=== PATIENT | male | born 1995 | race Caucasian/White ===

== ENCOUNTER 2020-07-29 03:03 | Emergency (ER) | payer SELFPAY ==
[2020-07-29] MEDS ORDERED: CLONAZEPAM 1 MG TABLET PO ONE (03:22)
[2020-07-29] MEDS ORDERED: ONDANSETRON 4 MG TAB.RAPDIS PO ONE (04:53)
[2020-07-29] MEDS ORDERED: NORMAL SALINE 1000 ML 1,000 ML IV ONE (05:05)
--- NOTE | 2020-07-29 05:05 | ER Document Report ---
ED Substance Abuse / Acc. OD - General Chief Complaint: Alcohol Withdrawl Stated Complaint: NAUSEOUS, DEHYDRATED Time Seen by Provider: 07/29/20 04:42 Mode of Arrival: Ambulatory Information source: Patient Notes: 24-year-old male patient presents the emergency department with concern for poss ible alcohol withdrawal. Patient reports he usually drinks one half of a gallon of liquor daily. He states that he does this for social reasons only and that sometimes he does not drink. He states he decided to not drink for 2 days and he started vomiting. He denies any fever, chills, diarrhea or any other symptoms. He has not had any shakes or seizures. - Related Data Allergies/Adverse Reactions: No Known Allergies Allergy (Verified 07/29/20 03:13) Past Medical History - General Information source: Patient - Social History Smoking Status: Current Every Day Smoker Frequency of alcohol use: Heavy Drug Abuse: None Family History: Reviewed & Not Pertinent Patient has homicidal ideation: No Psychiatric Medical History: Reports: Hx Attention Deficit Hyperactivity Disorder Surgical Hx: Negative - Immunizations Immunizations up to date: Yes Review of Systems - Review of Systems Gastrointestinal: Nausea, Vomiting. denies: Abdominal pain -: Yes All other systems reviewed and negative Physical Exam - Vital signs Vitals: Temp Pulse Resp BP Pulse Ox 98.1 F 124 H 12 152/107 H 95 07/29/20 03:11 07/29/20 03:11 07/29/20 03:11 07/29/20 03:11 07/29/20 03:11 - Notes Notes: PHYSICAL EXAMINATION: GENERAL: Well-appearing, well-nourished and in no acute distress. HEAD: Atraumatic, normocephalic. EYES: Pupils equal round and reactive to light, extraocular movements intact, sclera anicteric, conjunctiva are normal. ENT: Nares patent, oropharynx clear without exudates. Moist mucous membranes. NECK: Normal range of motion, supple without lymphadenopathy LUNGS: Breath sounds clear to auscultation bilaterally and equal. No wheezes rales or rhonchi. HEART: Regular rate and rhythm without murmurs ABDOMEN: Soft, nontender, nondistended abdomen. No guarding, no rebound. No masses appreciated. Musculoskeletal: Normal range of motion, no pitting or edema. No cyanosis. NEUROLOGICAL: Cranial nerves grossly intact. Normal speech, normal gait. Normal sensory, motor exams PSYCH: Normal mood, normal affect. SKIN: Warm, Dry, normal turgor, no rashes or lesions noted. Course - Re-evaluation Re-evalutation: Patient appears well, nontoxic, no evidence of acute alcohol withdrawal. He did have an elevated white blood count however this is likely secondary to repeated vomiting. He was given IV fluids and IV antiemetics in the emergency department and has not had any additional episodes of vomiting. Patient reports he feels much improved and is ready to be discharged home. We did discuss potential detox facilities, patient states he is not interested in these at this time. - Vital Signs Vital signs: Temp Pulse Resp BP Pulse Ox 98.1 F 124 H 12 113/97 H 95 07/29/20 03:11 07/29/20 03:11 07/29/20 03:11 07/29/20 07:05 07/29/20 03:11 - Laboratory Results Result Diagrams: 07/29/20 05:17 07/29/20 05:17 Laboratory Results Interpreted: 07/29/20 07/29/20 05:17 05:17 WBC 15.0 H Lymph % (Auto) 6.3 L Absolute Neuts (auto) 13.0 H Seg Neutrophils % 86.9 H Sodium 136.4 L Chloride 97 L Calcium 10.3 H Critical Laboratory Results Reviewed: No Critical Results - Radiology Results Critical Radiology Results Reviewed: No Critical Results Discharge - Discharge Clinical Impression: ETOH abuse Nausea and vomiting Qualifiers: Vomiting type: unspecified Vomiting Intractability: unspecified Qualified Code(s): R11.2 - Nausea with vomiting, unspecified Condition: Stable Disposition: HOME, SELF-CARE Additional Instructions: Please take medications as prescribed for nausea. Consider following up with [facility] for detox. If your symptoms persist please consider having Covid testing done. Return if worsening. Prescriptions: Ondansetron [Zofran Odt 4 mg Tablet] 1 - 2 tab PO Q4H PRN #15 tab.rapdis PRN Reason: For Nausea/Vomiting Ondansetron [Zofran Odt 4 mg Tablet] 1 - 2 tab PO Q4H PRN #15 tab.rapdis PRN Reason: For Nausea/Vomiting
[2020-07-29 05:26] LABS: ABSOLUTE LYMPHOCYTES (AUTO) 0.9 10^3/uL (0.5-4.7); BASOPHILS % (AUTO) 0.1 % (0-2); HEMATOCRIT 46.7 % (37.9-51.0); HEMOGLOBIN 16.2 g/dL (13.5-17.0); LYMPHOCYTES % (AUTO) 6.3 % (13-45); MEAN CORPUSCULAR HEMOGLOBIN 32.4 pg (27.0-33.4); MEAN CORPUSCULAR HGB CONC 34.7 g/dL (32.0-36.0); MEAN CORPUSCULAR VOLUME 93 fl (80-97); MONOCYTES % (AUTO) 6.7 % (3-13); PLATELET COUNT 222 10^3/uL (150-450); RED CELL DISTRIBUTION WIDTH 12.9 % (11.5-14.0); SEGMENTED NEUTROPHILS % (AUTO) 86.9 % (42-78); TOTAL CELLS COUNTED % (AUTO) 100 %
[2020-07-29 05:41] LABS: ALKALINE PHOSPHATASE 95 U/L (38-126); ANION GAP 10 (5-19); ASPARTATE AMINO TRANSFERASE 55 U/L (17-59); BILIRUBIN,DIRECT 0.1 mg/dL (0.0-0.4); BILIRUBIN,TOTAL 0.8 mg/dL (0.2-1.3); BLOOD UREA NITROGEN 13 mg/dL (7-20); CALCIUM 10.3 mg/dL (8.4-10.2); CARBON DIOXIDE 29 mmol/L (22-30); CHLORIDE 97 mmol/L (98-107); GLUCOSE 98 mg/dL (75-110); POTASSIUM 4.3 mmol/L (3.6-5.0); TOTAL PROTEIN 7.7 g/dL (6.3-8.2)
[2020-07-29 07:08] VITALS: BP 113/97
== END 2020-07-29 07:09 | disposition home or self-care (01) ==
LOC: ER 03:03
DX: F10.10 Alcohol abuse, uncomplicated (principal); R11.2 Nausea with vomiting, unspecified; F17.200 Nicotine dependence, unspecified, uncomplicated
CPT/HCPCS: 99284; 96360; 36415; 85025; 80053; S0119; J7030

== ENCOUNTER 2020-08-26 19:11 | Emergency (ER) | payer SELFPAY ==
--- NOTE | 2020-08-26 20:55 | ER Document Report ---
ED General - General Chief Complaint: Nasal Congestion Stated Complaint: CHILLS,VOMITING,NAUSEA - HPI Notes: Chief Complaint: Shortness of breath Historian: History obtained from patient HPI: This is a 24-year-old male presents to the ER complaining of shortness of breath, cough, congestion for the past few days. Patient says father has similar symptoms. Patient had a negative rapid Covid test yesterday. Reports cough is productive episodically. Patient has some diffuse anterior chest pain but says he has had this in the past and is not concerned. Patient is talking in full sentences and rapidly without any signs of respiratory distress or shortness of breath. He has a history of alcohol abuse and was recently admitted for severe alcohol withdrawal symptoms. Patient is adamant that he is not here related to alcohol abuse or withdrawal. He has been using an inhaler from his grandmother for his shortness of breath. No history of PE/DVT. Patient denies fevers, abdominal pain, nausea vomiting, rash, headache. Patient is requesting a 3-day Covid test instead of the prior rapid he had yesterday. ROS: Constitutional: Temp 99.9 ED HEENT: Congestion. CV: Chest pain Resp: Short of breath, productive cough. GI: no abdominal pain, or n/v/d. : no dysuria, hematuria, or incont. MSK: no back pain, no joint swelling/redness. Skin: no rashes or itching. Neuro: no seizures, weakness, numbness, or confusion. Hematological: no ecchymosis or easy bleeding. Endocrine: no polyuria/polydipsia, no heat/cold intolerance. Psych: no SI/HI, AH/VH or memory loss. PMHx: Reviewed and agree as charted by RN. PSHx: Reviewed and agree as charted by RN. SOCHx: Reviewed and agree as charted by RN. FHX: No significant familial comorbid conditions directly related to patient complaint Current Medications: Reviewed and agree with the patient medications as charted by the RN. Allergies: Reviewed and agree with the listed allergies as charted by the RN Physical Exam: Vitals: Reviewed in chart as documented by RN. General: Alert and in NAD. No respiratory distress Head: Normocephalic; atraumatic Eyes: PERRLA, Conjunctivae clear sclerae non-icteric bilat ENT: no soft palate swelling or uvular deviation Neck: trachea midline, no unilateral swelling/tenderness/lymphadenopathy CV: RRR, no M/R/G; symmetric distal pulses Resp: respirations even and unlabored, CTA bilat. GI: abd soft and nondistended. NTTP. normal BS. no masses/HSM. no CVAT bilat MSK: FROM of all extremities. No midline CTL spine tenderness/deformity Skin: warm, moist, good turgor. no rash/lesions Neuro: Alert and oriented X 4. following CN 2-12 intact. no unilateral weakness/numbness Psych: No SI/HI or AH/VH. Medical Decision-Making: Medical Decision-making/Differential Diagnosis: Consider various etiologies including but not limited to Covid, CAP, bronchitis, URI, sinusitis, PE/unlikely, ACSunlikely, viral syndrome strep pharyngitis, viral pharyngitis, other pharyngitis, candis-tonsillar abscess (unlikely), retropharyngeal abscess (unlikely), Acute Suppurative Otitis media, otalgia, upper respiratory infection, viral syndrome, bronchitis, sinusitis, ect Plan-we will get chest x-ray and 3-day Covid test. Patient's most likely a viral syndrome though Covid is possible. He is in no respiratory distress, O2 sats are 99% on room air and he is talking in full sentences without any distress. He does take Tylenol for fevers continue to self quarantine until Covid results return. Follow-up primary care for recheck. Extensive discussion regarding return factors were discussed. This course of action was discussed with the patient and/or family. They were amenable to this, verbalized understanding, and were without further questions. - Related Data Allergies/Adverse Reactions: No Known Allergies Allergy (Verified 07/29/20 03:13) Home Medications: using grandmother's inhaler Past Medical History - Social History Smoking Status: Current Every Day Smoker Chew tobacco use (# tins/day): No Frequency of alcohol use: 1/5 every day Drug Abuse: None Family History: Reviewed & Not Pertinent Patient has homicidal ideation: No Psychiatric Medical History: Reports: Hx Attention Deficit Hyperactivity Disorder - Immunizations Immunizations up to date: Yes Physical Exam - Vital signs Vitals: Temp Pulse Resp BP Pulse Ox 98.7 F 88 20 115/66 97 08/26/20 19:42 08/26/20 19:42 08/26/20 19:42 08/26/20 19:42 08/26/20 19:42 Course - Re-evaluation Re-evalutation: 08/26/20 22:02 Imaging reviewed questionable subtle infiltrate in left lower lobe. Radiology recommend lateral view but this is not possible due to patient's PUI status is radiology will only do single view chest. We will just empirically treat patient for me acquired pneumonia with azithromycin. We will also give patient steroid burst for his reported wheezing. Patient O2 sats 9% on room air no respiratory distress. Discharge home. Self quarantine until call with Covid results. Patient agreeable to plan. PCP follow-up this week. Return factors discussed. - Vital Signs Vital signs: Temp Pulse Resp BP Pulse Ox 98.7 F 88 20 115/66 97 08/26/20 19:42 08/26/20 19:42 08/26/20 19:42 08/26/20 19:42 08/26/20 19:42 - Laboratory Results Critical Laboratory Results Reviewed: No Critical Results - Radiology Results Critical Radiology Results Reviewed: No Critical Results Discharge - Discharge Clinical Impression: Left lower lobe pneumonia Qualifiers: Pneumonia type: due to unspecified organism Qualified Code(s): J18.9 - Pneumonia, unspecified organism Condition: Stable Disposition: HOME, SELF-CARE Instructions: COVID-19 Guidance for Persons Under Investigation, Pneumonia ([facility]) Additional Instructions: self quarantine until called w/ results. Follow all printed instructions. Take medications as prescribed. Follow up with your doctor in 2-3 days for re-check. Return to the ER if your condition worsens. Prescriptions: Prednisone [Deltasone 20 mg Tablet] 3 tab PO DAILY 5 Days #15 tablet Azithromycin [Zithromax 250 mg Tablet] 250 mg PO ASDIR PRN #6 tablet PRN Reason: Referrals: HANS CAMPUZANO MD [ACTIVE STAFF] - Follow up as needed
--- NOTE | 2020-08-26 21:53 | RADIOLOGY REPORT (SQ) ---
EXAM DESCRIPTION: XR CHEST 1 VIEW COMPLETED DATE/TME: 08/26/2020 21:29 CLINICAL HISTORY: 24 years, Male, sob, cough COMPARISON: None. TECHNIQUE: PA view of the chest FINDINGS: Cardiomediastinal silhouette is small. Hyperinflation. Mild asymmetry between the hilar regions with the left appearing larger and with greater haziness. This could represent normal variation. A small infiltrate in superior segment of left lower lobe is not excluded. No suspicious pleural disease. IMPRESSION: Question subtle infiltrate superior segment left lower lobe versus normal variation. Consider lateral view.
[2020-08-26 22:19] VITALS: BP 159/102
== END 2020-08-26 22:21 | disposition home or self-care (01) ==
LOC: ER 19:11
DX: J18.9 Pneumonia, unspecified organism (principal); R09.81 Nasal congestion; R11.10 Vomiting, unspecified; R06.02 Shortness of breath; F17.200 Nicotine dependence, unspecified, uncomplicated
CPT/HCPCS: 99284; 87635; 71045; C9803